=== PATIENT | male | born 1995 | race Caucasian/White ===

== ENCOUNTER 2024-08-25 10:03 | Emergency (ER) | payer OTHER, SELFPAY ==
[2024-08-25 10:16] VITALS: BP 138/88
--- NOTE | 2024-08-25 10:19 | ED.GENMED ---
ED Provider Triage
<Ryanne Rosario PA-C - Last Filed: 08/25/24 10:25>
-
Patient seen by provider in Triage?: Seen in Triage
Attestation: A medical screening examination has been initiated by a qualified medical provider. Based on the assessment performed at this time, it has been determined that an emergent medical condition may exist and the patient has been informed
that further medical evaluation and possible additional diagnostic testing may be needed.
HPI: 28yoM here with flu-like symptoms. Started with a sore throat on Thursday. Now having cough, nausea, vomiting. Has not eaten in past few days. No fevers, diarrhea, abd pain.
GENERAL: Alert , in no apparent distress
EYE: No visual abnormalities.
NECK: Trachea midline
ENT: No visible abnormalities.
LUNGS: No acute respiratory distress
NEUROLOGICAL: Alert and oriented
SKIN: Skin intact. No visible changes.
MUSCULOSKELETAL: Moving extremities normally
PSYCH: Normal and appropriate interaction.
This is a medical evaluation conducted in person to initiate diagnostic evaluation and provide initial therapeutics. Please see further documentation by the treating clinician.
CBC, CMP, COVID/flu swab, strep swab, and CXR ordered.
History of Present Illness
<Ryanne Rosario PA-C - Last Filed: 08/25/24 10:25>
General
Chief Complaint: Abdominal Symptoms
Time Seen by Provider: 08/25/24 11:34
<Volodymyr Gr PA-C - Last Filed: 08/25/24 15:55>
History of Present Illness
History of Present Illness:
28-year-old male with no significant past medical history presents to the emergency department for evaluation of persistent nausea and vomiting associated with a dry cough for the past 3 days. Has been vomiting any oral intake over that time.
Cough is predominantly dry. He does report upper respiratory congestion. No shortness of breath or chest pain. No diarrhea.
Past History
<Ryanne Rosario PA-C - Last Filed: 08/25/24 10:25>
Past History
ED Past Medical History: None
ED Past Surgical History: None
Social History
Tobacco: Non-smoker
Drug: None
Review of Systems
<Volodymyr Gr PA-C - Last Filed: 08/25/24 15:55>
Review of Systems
Allergies reviewed?: Yes
All Other Systems: ROS reviewed and negative except as documented in HPI and ROS
Phy Exam
<Volodymyr Gr PA-C - Last Filed: 08/25/24 15:55>
Physical Exam
Physical Exam:
GEN: Well appearing, NAD, WDWN
HEENT: Oral mucosa moist, no scleral icterus
Cardiac: Regular rate and rhythm, no murmurs
Lung: No respiratory distress, no tachypnea, lungs clear to auscultation bilaterally
Abdomen: Soft, nontender, no rigidity
MSK: No gross deformity or injuries
Skin: Good color, no pallor or jaundice, no rashes
Neuro: AO x3, moves all extremities freely
Psych: Calm, cooperative
Course
<Ryanne Rosario PA-C - Last Filed: 08/25/24 10:25>
Orders/Labs/Results
Orders:
Orders
08/25/24 10:21
CR Chest - 2 Views Urgent
Comment:
Reason For Exam: Cough
08/25/24 10:37
Comprehensive Metabolic Panel Urgent
08/25/24 10:39
COVID-19 Antigen Urgent
Source: Nasal Swab
Complete Blood Count/With Diff Urgent
Influenza A+B Rapid Molecular Urgent
BINU Source: Nasal Swab
Specimen Description:
08/25/24 10:41
Rapid Strep Group A Urgent
BINU Source: Throat/Pharynx
Specimen Description:
Date Specimen was Collected: 08/25/24
Time Specimen was Collected: 10:39
08/25/24 12:02
Ondansetron Orally Disint [Zofran Odt (Orally Disintegrating)] 4 mg PO NOW STA
Abnormal Lab Results
08/25/24 08/25/24
10:37 10:39
Absolute Monos (auto) 0.9 H 10^3/uL
(0.1-0.6)
Monocytes % 12.3 H %
(1.7-9.3)
Total Bilirubin 1.4 H mg/dl
(0.2-1.3)
AST 63 H U/L
(17-59)
ALT 121 H U/L
(0-50)
Total Protein 8.7 H g/dl
(6.3-8.2)
Albumin 5.3 H g/dl
(3.5-5.0)
08/25/24 10:39
08/25/24 10:37
Vital Signs
Initial and Last Documented VS:
Initial Vital Signs
Temp Pulse Resp BP Pulse Ox
98.8 F 106 20 138/88 98
08/25/24 10:16 08/25/24 10:16 08/25/24 10:16 08/25/24 10:16 08/25/24 10:16
Last Documented Vital Signs
Temp Pulse Resp BP Pulse Ox
98.8 F 99 18 125/70 97
08/25/24 10:16 08/25/24 11:36 08/25/24 11:36 08/25/24 11:36 08/25/24 11:36
<Volodymyr Gr PA-C - Last Filed: 08/25/24 15:55>
Orders/Labs/Results
Orders:
Orders
08/25/24 10:21
CR Chest - 2 Views Urgent
Comment:
Reason For Exam: Cough
08/25/24 10:37
Comprehensive Metabolic Panel Urgent
08/25/24 10:39
COVID-19 Antigen Urgent
Source: Nasal Swab
Complete Blood Count/With Diff Urgent
Influenza A+B Rapid Molecular Urgent
BINU Source: Nasal Swab
Specimen Description:
08/25/24 10:41
Rapid Strep Group A Urgent
BINU Source: Throat/Pharynx
Specimen Description:
Date Specimen was Collected: 08/25/24
Time Specimen was Collected: 10:39
08/25/24 12:02
Ondansetron Orally Disint [Zofran Odt (Orally Disintegrating)] 4 mg PO NOW STA
Abnormal Lab Results
08/25/24 08/25/24
10:37 10:39
Absolute Monos (auto) 0.9 H 10^3/uL
(0.1-0.6)
Monocytes % 12.3 H %
(1.7-9.3)
Total Bilirubin 1.4 H mg/dl
(0.2-1.3)
AST 63 H U/L
(17-59)
ALT 121 H U/L
(0-50)
Total Protein 8.7 H g/dl
(6.3-8.2)
Albumin 5.3 H g/dl
(3.5-5.0)
08/25/24 10:39
08/25/24 10:37
Vital Signs
Initial and Last Documented VS:
Initial Vital Signs
Temp Pulse Resp BP Pulse Ox
98.8 F 106 20 138/88 98
08/25/24 10:16 08/25/24 10:16 08/25/24 10:16 08/25/24 10:16 08/25/24 10:16
Last Documented Vital Signs
Temp Pulse Resp BP Pulse Ox
98.8 F 99 18 125/70 97
08/25/24 10:16 08/25/24 11:36 08/25/24 11:36 08/25/24 11:36 08/25/24 11:36
<Volodymyr Gr PA-C - Last Filed: 08/25/24 15:55>
MDM/Problems Addressed
MDM/Problems Addressed:
Likely self-limited viral syndrome, tolerated p.o. fluids after ODT Zofran in the emergency department. Labs and workup reassuring
<Volodymyr Gr PA-C - Last Filed: 08/25/24 15:55>
*Critical Care Note
Total Time (30-74mins, 75-104mins- exclusive of procedures): Not Applicable
ED Attending Note
<Ryanne Rosario PA-C - Last Filed: 08/25/24 10:25>
-
Portions of this chart may have been created with voice recognition software.� Occasional wrong word or��sound alike� substitutions may have occurred due to the inherent limitations of voice recognition software.
Discharge Plan
Departure
Patient Disposition: Home (Routine Discharge)
Date of Disposition: 08/25/24
Time of Disposition: 13:00
Patient with high blood pressure during this ER visit?: No
Discharge Problem:
Acute viral syndrome
Instructions: Nausea and Vomiting, Adult (DC)
Prescriptions:
New
ondansetron 4 mg tablet,disintegrating
4 mg PO TIDPRN PRN (Reason: nausea/vomiting) Qty: 10 0RF
Referrals:
Rogers Osullivan MD [Family Provider] -
Stand Alone Forms: Return to Work
Interventions
Interventions:
*Risk Screen - Suicide Last Done: 08/25/24 10:16
*General Assessment Last Done: 08/25/24 10:16
*Neglect/Abuse Screening Last Done: 08/25/24 10:16
*Nursing Disposition Last Done: 12/19/24 13:52
DW-Gyxhob-Kehysavfpv Assessment Last Done: 08/25/24 11:36
Discharge Date and Time
Discharge Date/Time: 08/25/24 13:52
Print Language: NIGERIAN
[2024-08-25 10:55] LABS: % Basophils 0.7 % (0-2); % Eosinophils 1.3 % (0-6); % Immature Granulocytes 0.1 % (0-0.5); % Lymphocytes 21.3 % (20.5-51.1); % Monocytes 12.3 % (1.7-9.3); % Neutrophils 64.3 % (42.2-75.2); Absolute Basophils 0.1 10^3/uL (0-0.2); Absolute Eosinophils 0.1 10^3/uL (0-0.7); Absolute Lymphocytes 1.5 10^3/uL (1.2-3.4); Absolute Monocytes 0.9 10^3/uL (0.1-0.6); Absolute Neutrophils 4.6 10^3/uL (1.4-6.5); Hematocrit 45.4 % (39.0-52.0); Hemoglobin 16.1 g/dL (13.0-18.0); Mean Corp Hgb Conc. 35.5 g/dL (33.0-37.0); Mean Corpuscular Hgb 29.5 pg (27.0-31.0); Mean Corpuscular Volume 83.3 fL (80.0-94.0); Mean Platelet Volume 9.6 fL (7.4-10.4); Nucleated Red Blood Cells % 0 % (-); Platelet Count 238 10^3/uL (130-400); Red Blood Cell Count 5.45 10^6/uL (4.70-6.10); Red Cell Dist. Width 11.9 % (11.5-14.5); White Blood Cell Count 7.1 10^3/uL (4.8-10.8)
[2024-08-25 11:13] LABS: ALT (SGPT) 121 U/L (0-50); AST (SGOT) 63 U/L (17-59); Albumin 5.3 g/dl (3.5-5.0); Alkaline Phosphatase 99 U/L (38-126); Blood Urea Nitrogen 18 mg/dl (9-20); Carbon Dioxide 23 mmol/L (22-30); Chloride 101 mmol/L (98-107); Glucose 90 mg/dl (70-99); Potassium 4.5 mmol/L (3.5-5.1); Sodium 139 mmol/L (135-145); Total Bilirubin 1.4 mg/dl (0.2-1.3); Total Protein 8.7 g/dl (6.3-8.2); eGFR > 60.00
[2024-08-25 11:29] LABS: COVID-19 Antigen Negative (Negative)
[2024-08-25 11:36] VITALS: BP 125/70; BMI 25.5
[2024-08-25] MEDS: ZOFRAN ODT (ORALLY DISINTEGRATING) 4 MG PO (12:17)
== END 2024-08-25 13:52 | disposition home or self-care (01) ==
LOC: EMR 10:03
PROVIDERS: Physician Assistant; EMERGENCY PHYSICIAN Student in an Organized Health Care Education/Training Program; FAMILY PHYSICIAN Internal Medicine
DX: B34.9 Viral infection, unspecified (principal); R11.2 Nausea with vomiting, unspecified
CPT/HCPCS: 99284; 71046; 80053; 85025; 87070; 87502; 87811; 87880